=== PATIENT | male | born 1970 | race Caucasian/White ===

== ENCOUNTER 2016-10-25 09:57 | Emergency (ER) | payer BC ==
[2016-10-25 10:20] VITALS: BP 145/87
--- NOTE | 2016-10-25 10:57 | EDM.PDOC ---
ED HPI GENERAL MEDICAL PROBLEM - General Chief Complaint: Chest Pain Stated Complaint: CHEST PAIN Time Seen by Provider: 10/25/16 10:06 Source of Information: Reports: Patient, RN Notes Reviewed History Limitations: Reports: No Limitations - History of Present Illness INITIAL COMMENTS - FREE TEXT/NARRATIVE: The patient states that he has been experiencing right-sided chest pain that radiates to his right scapula since 10/22/2016. He describes the character as a dull ache, and it is constant. He states that it feels better if he takes a deep breath, but worse when he exhales. Otherwise, he has not identified any modifiers. He denies any associated symptoms, such as dyspnea, nausea, diaphoresis, or sense of impending doom. He states that he had similar symptoms on the left side about 2 years ago. He states that he was seen in the ED and was told that he had "heartburn. He states that he has never previously had a stress test. The patient's PCP is Dr. Carlos Ballard, whom he states he last saw about 1.5 years ago. Chest Pain Score (Numeric/FACES): 2 - Related Data Allergies Allergy/AdvReac Type Severity Reaction Status Date / Time No Known Allergies Allergy Verified 10/25/16 10:06 Home Meds: Home Meds . 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) ED ROS GENERAL - Review of Systems Review Of Systems: See Below Constitutional: Reports: No Symptoms HEENT: Reports: No Symptoms Respiratory: Reports: No Symptoms Cardiovascular: Reports: No Symptoms Endocrine: Reports: No Symptoms GI/Abdominal: Reports: No Symptoms : Reports: No Symptoms Musculoskeletal: Reports: No Symptoms Skin: Reports: No Symptoms Neurological: Reports: No Symptoms Psychiatric: Reports: No Symptoms Hematologic/Lymphatic: Reports: No Symptoms Immunologic: Reports: No Symptoms ED EXAM, GENERAL - Physical Exam Exam: See Below Exam Limited By: No Limitations General Appearance: Alert, WD/WN, No Apparent Distress Eye Exam: Bilateral Eye: Normal Inspection Ears: Normal External Exam, Hearing Grossly Normal Nose: Normal Inspection, No Blood Throat/Mouth: Normal Inspection, Normal Lips, Normal Voice, No Airway Compromise Head: Atraumatic, Normocephalic Neck: Normal Inspection, Full Range of Motion Respiratory/Chest: No Respiratory Distress, Lungs Clear, Normal Breath Sounds, No Accessory Muscle Use, Chest Non-Tender Cardiovascular: Normal Peripheral Pulses, Regular Rate, Rhythm, No Gallop, No JVD, No Murmur, No Rub Peripheral Pulses: 4+: Radial (L), Radial (R) GI/Abdominal: Normal Bowel Sounds, Soft, Non-Tender, No Organomegaly, No Distention, No Abnormal Bruit, No Mass (Male) Exam: Deferred Rectal (Males) Exam: Deferred Back Exam: Normal Inspection, Full Range of Motion, Other (Reproducible tenderness to the right medial parascapular muscles) Extremities: Normal Inspection, Normal Range of Motion, No Pedal Edema, Normal Capillary Refill Neurological: Alert, Oriented, Normal Cognition, No Motor/Sensory Deficits Psychiatric: Normal Affect Skin Exam: Warm, Dry, Intact, Normal Color, No Rash Lymphatic: No Adenopathy EKG INTERPRETATION EKG Date: 10/25/16 Time: 10:08 Rhythm: Other (Sinus bradycardia) Rate (Beats/Min): 57 [place]: Normal P-Wave: Present QRS: Normal ST-T: Normal QT: Normal Comparison: NA - No Prior EKG Course - Vital Signs Last Recorded V/S: Last Vital Signs Temp 36.2 C 10/25/16 10:06 Pulse 61 10/25/16 10:19 Resp 18 10/25/16 10:06 BP 145/87 H 10/25/16 10:19 Pulse Ox 98 10/25/16 10:06 - Orders/Labs/Meds Orders: Active Orders 24 hr Category Date Time Status EKG Documentation Completion [RC] STAT Care 10/25/16 10:12 Active Labs: Laboratory Tests 10/25/16 10/25/16 10/25/16 Range/Units 10:06 10:06 10:06 WBC 9.06 (4.23-9.07) K/mm3 RBC 5.77 (4.63-6.08) M/mm3 Hgb 16.8 (13.7-17.5) gm/L Hct 48.5 (40.1-51.0) % MCV 84.1 (79.0-92.2) fl MCH 29.1 (25.7-32.2) pg MCHC 34.6 (32.2-35.5) g/dl RDW Std Deviation 43.3 (35.1-43.9) fL Plt Count 263 (163-337) K/mm3 MPV 10.0 (9.4-12.3) fl Neutrophils % (Manual) 58 (40-60) % Band Neutrophils % 0 (0-10) % Lymphocytes % (Manual) 23 (20-40) % Atypical Lymphs % 6 % Monocytes % (Manual) 10 (2-10) % Eosinophils % (Manual) 2 (0.8-7.0) % Basophils % (Manual) 1 (0.2-1.2) Platelet Estimate Adequate RBC Morph Comment Normal PT 11.0 (8.0-13.0) SECONDS INR 1.01 APTT 30 (22-36) SECONDS D-Dimer, Quantitative < 0.19 L (0.19-0.59) mg/L Sodium 138 (136-145) mEq/L Potassium 4.2 (3.5-5.1) mEq/L Chloride 104 (98-107) mEq/L Carbon Dioxide 26 (21-32) mEq/L Anion Gap 12.2 (5-15) BUN 21 H (7-18) mg/dL Creatinine 1.1 (0.7-1.3) mg/dL Est Cr Clr Drug Dosing 76.78 mL/min Estimated GFR (MDRD) > 60 (>60) mL/min BUN/Creatinine Ratio 19.1 H (14-18) Glucose 102 (74-106) mg/dL Calcium 9.3 (8.5-10.1) mg/dL Total Bilirubin 0.3 (0.2-1.0) mg/dL AST 18 (15-37) U/L ALT 26 (16-63) U/L Alkaline Phosphatase 71 (46-116) U/L Troponin I < 0.017 (0.00-0.056) ng/mL NT-Pro-B Natriuret Pep 7 (0-125) pg/mL Total Protein 7.8 (6.4-8.2) g/dl Albumin 4.2 (3.4-5.0) g/dl Globulin 3.6 gm/dL Albumin/Globulin Ratio 1.2 (1-2) - Re-Assessments/Exams Free Text/Narrative Re-Assessment/Exam: 10/25/16 10:28 Two-view chest radiograph appears to be grossly normal. Cardiac silhouette is within normal limits. No pulmonary vascular congestion. No pleural effusions. No focal infiltrate. No pneumothorax. Formal read per the Radiologist pending. 10/25/16 12:08 Test results discussed with the patient. Today's workup is entirely unremarkable. His history and reproducibility of right parascapular discomfort strongly suggests that his symptoms are musculoskeletal in etiology. I am recommending [id number] ibuprofen, stretching, massage, etc. Departure - Departure Time of Disposition: 12:09 Disposition: Home, Self-Care 01 Condition: Good Clinical Impression: Musculoskeletal chest pain - Discharge Information Instructions: Chest Wall Pain, [id number] Referrals: Carlos Ballard Jr, MD [Primary Care Provider] - Forms: ED Department Discharge Additional Instructions: You were seen in the emergency room for right-sided chest pain that radiated to your right back. Workup in the ER included blood work, an ECG, and a chest x-ray. Your entire workup was unremarkable. You have not suffered a heart attack. You do not have a blood clot in your lungs. You do not have pneumonia or a collapsed lung. Your chest pain is MOST LIKELY musculoskeletal in etiology, meaning, a muscle spasm or strained muscle. We recommend [id number] ibuprofen as needed for discomfort, along with stretches and massage. We recommend that you notify the office of Dr. Ballard of today's ER visit. If any other problems, please do not hesitate to return to the ER. - My Orders Last 24 Hours: My Active Orders 10/25/16 10:12 EKG Documentation Completion [RC] STAT - Assessment/Plan Last 24 Hours: My Active Orders 10/25/16 10:12 EKG Documentation Completion [RC] STAT
--- NOTE | 2016-10-25 11:40 | CR ---
Chest: Two views of the chest are obtained. Comparison: No previous study. Heart size and mediastinum are normal. Lungs are clear. Bony structures show slight anterior wedging of a lower thoracic vertebral body which is likely old. Mild degenerative change is noted within the lower thoracic and upper lumbar spine. Impression: 1. Incidental findings. Nothing acute is appreciated on two-view chest x-ray. Diagnostic code #2
== END 2016-10-25 12:23 | disposition home or self-care (01) ==
LOC: JD.ED 09:57
DX: R07.89 Other chest pain (principal)
CPT/HCPCS: 36415; 71020; 71020-26; 80053; 83880; 84484; 85025; 85379; 85610; 85730; 93005; 99284; 99285-25

== ENCOUNTER 2017-02-12 06:15 | Emergency (ER) | payer BC ==
[2017-02-12] MEDS ORDERED: Morphine 4 MG/ML Syringe ONE (07:03)
[2017-02-12] MEDS ORDERED: Ketorolac 30 MG/ML SDV ONE (07:03)
[2017-02-12] MEDS ORDERED: Sodium Chloride 0.9% 1,000 ML ONE (07:03)
[2017-02-12] MEDS ORDERED: Ondansetron 4 MG/2 ML SDV ONE (07:03)
--- NOTE | 2017-02-12 14:17 | CT ---
CT abdomen and pelvis Technique: Multiple axial sections were obtained from above the dome of the diaphragm inferiorly to the pubic symphysis. Intravenous and oral contrast were not utilized. Study has been performed as a ureteral stone protocol. Findings: Left ureter is mildly dilated. This is caused by an obstructing stone located at the left UVJ measuring about 5.6 mm in size. No other abnormal calcifications seen along the course of the ureters. Small nonobstructing calculi are seen within both kidneys. Visualized portions of the lower liver and spleen have an unremarkable noncontrast appearance. I do not see a definite calcified gallstone within the gallbladder. Adrenal glands show no nodule. Pancreas is within normal limits. Aorta shows no aneurysmal dilatation. No retroperitoneal adenopathy or mesenteric abnormalities are seen. Appendix is seen which is normal. No pelvic mass or adenopathy is seen. No free fluid or inflammatory change is seen within the abdomen or pelvis. Slight degenerative change scattered within the spine. Minimal sigmoid diverticulosis is seen. Impression: 1. Mild left-sided hydronephrosis caused by a 5.6 mm stone within the distal left ureter at the UVJ. 2. Several small nonobstructing calculi within both kidneys. 3. Other incidental findings. Diagnostic code #3 Agree with preliminary report issued by [employer] ([employer] preliminary report dictated on 02/12/17, 8:47 AM Central Time)
[2017-02-12 14:28] VITALS: BP 121/85
== END 2017-02-12 12:10 | disposition home or self-care (01) ==
LOC: JD.ED 06:15
DX: N20.2 Calculus of kidney with calculus of ureter (principal)
CPT/HCPCS: 36415; 74176; 80053; 81001; 85025; 96361; 96374; 96375; 99284; J1885; J2270; J2405; J7040; 99283

== ENCOUNTER 2021-01-05 07:23 | Day surgery (SDC) | payer BC ==
[~2021-01-05 07:23] MED LIST: Lactated Ringers 1,000 ML IV SCH; Lidocaine 1%/Sod Bicarbonate in NS 8.4% 1 ML Syringe IDERM PRN; Sodium Chloride 0.9% 10 ML Syringe FLUSH PRN
--- NOTE | 2021-01-05 07:54 | PCM.PRNOTE ---
- Free Text/Narrative Note: Date: 01/05/2021 Procedure: screening colonoscopy History: average risk for colon cancer, no prior screening to date Endoscopist: Jose Jewell MD Findings: excellent prep, normal anatomy Detailed Report: The patient was taken to the endoscopy suite and placed in left lateral decubitus position. Timeout was performed and monitored anesthesia care was initiated. The anus appeared normal and digital rectal exam was unremarkable. The colonoscope was inserted and advanced to the cecum with ease. The prep was excellent. The appendiceal orifice and ileocecal valve were visualized. The scope was slowly withdrawn and mucosal surfaces carefully inspected. No polyps were identified. No other pathology was appreciated. On retroflexion in the rectum, no significant hemorrhoidal disease was noted. Air was suctioned from the distal colon and rectum prior to withdrawal of the scope. The patient tolerated the procedure well.
--- NOTE | 2021-01-05 08:42 | PCM.PREANE ---
Preanesthetic Assessment - Anesthesia/Transfusion/Family Hx Anesthesia History: Prior Anesthesia Without Reaction Family History of Anesthesia Reaction: No Transfusion History: No Prior Transfusion(s) Intubation History: Unknown - Review of Systems General: No Symptoms Pulmonary: No Symptoms Cardiovascular: No Symptoms Gastrointestinal: No Symptoms Neurological: No Symptoms Other: Reports: None - Physical Assessment NPO Status Date: 01/05/21 NPO Status Time: 04:00 ASA Class: 2 Mental Status: Alert & Oriented x3 Airway Class: Mallampati = 1 Dentition: Reports: Normal Dentition Thyro-Mental Finger Breadths: 3 Mouth Opening Finger Breadths: 3 ROM/Head Extension: Full Lungs: Clear to Auscultation, Normal Respiratory Effort Cardiovascular: Regular Rate, Regular Rhythm - Allergies Allergies/Adverse Reactions: Allergies Allergy/AdvReac Type Severity Reaction Status Date / Time No Known Allergies Allergy Verified 01/04/21 11:41 - Acknowledgements Anesthesia Type Planned: MAC Pt an Appropriate Candidate for the Planned Anesthesia: Yes Alternatives and Risks of Anesthesia Discussed w Pt/Guardian: Yes Pt/Guardian Understands and Agrees with Anesthesia Plan: Yes PreAnesthesia Questionnaire HEENT History: Reports: Impaired Vision Cardiovascular History: Reports: High Cholesterol Respiratory History: Reports: None Gastrointestinal History: Reports: None Genitourinary History: Reports: Renal Calculus ASSET AVAILABILITY LEADER History: Reports: None Musculoskeletal History: Reports: None Neurological History: Reports: None Psychiatric History: Reports: None Endocrine/Metabolic History: Reports: Other (See Below) (elevated A1C) Hematologic History: Reports: None Immunologic History: Reports: None Oncologic (Cancer) History: Reports: None Dermatologic History: Reports: None - Infectious Disease History Infectious Disease History: Reports: None - Past Surgical History Head Surgeries/Procedures: Reports: None HEENT Surgical History: Reports: None Cardiovascular Surgical History: Reports: None Respiratory Surgical History: Reports: None GI Surgical History: Reports: None Female Surgical History: Reports: None Male Surgical History: Reports: None Endocrine Surgical History: Reports: None Neurological Surgical History: Reports: None Musculoskeletal Surgical History: Reports: ORIF Other Musculoskeletal Surgeries/Procedures:: foot surgery Oncologic Surgical History: Reports: None Dermatological Surgical History: Reports: None - SUBSTANCE USE Tobacco Use Status *Q: Current Every Day Tobacco User Tobacco Use Within Last Twelve Months: Snuff/Dip (last chewed on Saturday01/03/21) Days Per Week of Alcohol Use: 2 Number of Drinks Per Day: 3 Total Drinks Per Week: 6 Recreational Drug Use History: No - HOME MEDS Home Medications: Home Meds Lansoprazole [Prevacid] 15 mg PO DAILY 01/04/21 [History] - CURRENT (IN HOUSE) MEDS Current Meds: Current Medications Lactated Ringer's (Ringers, Lactated) 1,000 mls @ 125 mls/hr IV ASDIRECTED CONNOR Stop: 01/05/21 23:00 Lidocaine/Sodium Bicarbonate (Lidocaine 1%/Sod Bicarbonate In Ns 8.4% 1 Ml Syringe) 0.25 ml IDERM ONETIME PRN PRN Reason: Prior to IV Start Stop: 01/05/21 18:00 Sodium Chloride (Sodium Chloride 0.9% 10 Ml Syringe) 10 ml FLUSH ASDIRECTED PRN PRN Reason: Keep Vein Open Stop: 01/05/21 18:00
[2021-01-05] MEDS ORDERED: Lidocaine 1% 4 ML ONE (08:53)
[2021-01-05] MEDS ORDERED: Propofol 200 MG/20 ML SDV ONE ×2 (08:53→09:01)
--- NOTE | 2021-01-05 09:27 | PCM48HPAN ---
Post Anesthesia Note - EVALUATION WITHIN 48HRS OF ANESTHETIC Vital Signs in Normal Range: Yes Patient Participated in Evaluation: Yes Respiratory Function Stable: Yes Airway Patent: Yes Cardiovascular Function Stable: Yes Hydration Status Stable: Yes Pain Control Satisfactory: Yes Nausea and Vomiting Control Satisfactory: Yes Mental Status Recovered: Yes Vital Signs: Last Vital Signs Temp 36.6 C 01/05/21 07:40 Pulse 70 01/05/21 07:40 Resp 16 01/05/21 07:40 BP 139/92 H 01/05/21 07:40 Pulse Ox 96 01/05/21 07:40
[2021-01-05 09:50] VITALS: BP 140/78; PULSE 61
== END 2021-01-05 09:56 | disposition home or self-care (01) ==
LOC: JD.SDS 07:23
PROVIDERS: ATTEND Surgery
DX: Z12.11 Encounter for screening for malignant neoplasm of colon (principal); E78.00 Pure hypercholesterolemia, unspecified; K21.9 Gastro-esophageal reflux disease without esophagitis; F17.210 Nicotine dependence, cigarettes, uncomplicated; Z79.899 Other long term (current) drug therapy; Z98.890 Other specified postprocedural states
CPT/HCPCS: 45378; J2704; J7120; 00812

== ENCOUNTER 2021-08-13 15:49 | Emergency (ER) | payer BC ==
[2021-08-13 16:11] VITALS: BP 175/92; PULSE 64
[2021-08-13] MEDS ORDERED: Ketorolac 15 MG/ML SDV IVPUSH ONE (16:39)
[2021-08-13] MEDS ORDERED: Ondansetron 4 MG/2 ML SDV IVPUSH ONE (16:39)
== END 2021-08-13 17:36 | disposition home or self-care (01) ==
LOC: JD.ED 15:49
DX: N20.0 Calculus of kidney (principal); E78.00 Pure hypercholesterolemia, unspecified; F17.210 Nicotine dependence, cigarettes, uncomplicated; K21.9 Gastro-esophageal reflux disease without esophagitis; Z79.899 Other long term (current) drug therapy
CPT/HCPCS: 36415; 80053; 81001; 85025; 96374; 96375; 99284; J1885; J2405; 99283

== ENCOUNTER 2021-08-25 21:10 | Emergency (ER) | payer BC | END 2021-08-25 21:45 | LOC: JD.ED 21:10 | DX: Z53.21 Procedure and treatment not carried out due to patient leaving prior to being seen by health care provider (principal) ==